=== PATIENT | female | born 1965 | race Caucasian/White ===

== ENCOUNTER 2018-01-10 14:35 | Inpatient (IN) | payer OTHER ==
[~2018-01-10] VITALS: Ht 167.6 cm; Wt 90.3 kg
[2018-01-10 14:44] VITALS: BP 120/82
[2018-01-10] MEDS ORDERED: diphenhydrAMINE 50 MG/ML VIAL IM ONE (14:55)
[2018-01-10] MEDS ORDERED: NACL 0.9% 1,000 ML IV ONE ×2 (14:55→16:55)
[2018-01-10] MEDS ORDERED: HALOPERIDOL IM 5 MG/ML VIAL IM ONE ×2 (14:55→16:35)
--- NOTE | 2018-01-10 15:01 | NUR ---
PT MOVED FROM BED 3 TO BED 7
--- NOTE | 2018-01-10 15:04 | NUR ---
52 YO F PT BIBA FOR C/O COMBATIVE BEHAVIOR AND CONFUSION WHILE [facility]. PER EMS, PT WAS COMBATIVE TOWARDS STAFF, ONCE EMS ARRIVED PT WAS HYPERVERBAL, SAYING UNRELATED THINGS, TANGENTIAL. DENIES SI. PER REPORT, PT CLAIMS THAT SHE IS , BUT [place] [facility] [place], AND WAS NEGATIVE. PT GCS 14, PT SEEMS CONFUSED. SAYING INAPPOPRIATE THINGS AND TOUCHING STAFF MEMBERS IN INAPPOPRIATE WAYS. AWAKE AND REPSPONDS/FOLLOWS COMMANDS. RR EVEN AND UNLABORED. LUNGS CLEAR. ER MD GORDON NOTIFIED. PT NEEDS MET. SAFETY PRECAUTIONS IN PLACE. WILL CONTINUE TO MONITOR.
[2018-01-10 15:33] LABS: BASOPHILS % (AUTO) 0.6 % (0.0-2.0); EOSINOPHILS # (AUTO) 0.1 K/uL (0-0.4); EOSINOPHILS % (AUTO) 1.9 % (0.0-4.0); HEMATOCRIT 36.5 % (36-48); HEMOGLOBIN 11.7 g/dL (12.0-16.0); LYMPHOCYTES # (AUTO) 1.9 K/uL (2.5-16.5); LYMPHOCYTES % (AUTO) 26.3 % (20.5-51.1); MEAN CORPUSCULAR HEMOGLOBIN 27 pg (27-31); MEAN CORPUSCULAR HGB CONC 32 g/dL (33-37); MEAN CORPUSCULAR VOLUME 85.5 fL (80-94); MONOCYTES # (AUTO) 0.7 K/uL (0.8-1.0); MONOCYTES % (AUTO) 9.1 % (1.7-9.3); NEUTROPHILS # (AUTO) 4.5 K/uL (1.8-7.7); NEUTROPHILS % (AUTO) 62.1 % (42.2-75.2); PLATELET COUNT (AUTO) 351 K/uL (140-450); RED BLOOD CELL COUNT(AUTO) 4.27 MIL/uL (4.20-5.40); RED CELL DISTRIBUTION WIDTH 16.4 % (11.6-13.7); WHITE BLOOD COUNT (AUTO) 7.3 K/uL (4.8-10.8)
[2018-01-10 15:40] LABS: ANION GAP 11.5 (8-16); CARBON DIOXIDE 30.7 mmol/L (21-32); CHLORIDE 104 mmol/L (98-107); CREATININE 0.9 mg/dL (0.6-1.3); GFR ARICAN-AMERICAN 84 mL/min (>90); GLUCOSE 100 mg/dL (74-106); POTASSIUM 3.2 mmol/L (3.5-5.1); SODIUM SERUM 143 mmol/L (136-145); UREA NITROGEN, BLOOD 8 mg/dL (7-18)
[2018-01-10 15:48] LABS: ALBUMIN 3.7 g/dL (3.4-5.0); ASPARTATE AMINOTRANSFERASE 13 U/L (15-37); SALICYLATE < 2.8 mg/dL (2.8-20.0); TOTAL BILIRUBIN 0.4 mg/dL (0.0-1.0)
[2018-01-10 15:50] LABS: ACETAMINOPHEN < 0.5 ug/ml (10-30)
--- NOTE | 2018-01-10 15:58 | NUR ---
PT IS AGITATED KEEPS ON YELLING AND REMOVING ALL LEADS;PT PLACED ON RESTRAINTS;
[2018-01-10 16:33] LABS: BARBITURATE, URINE NEG. ng/ml (NEG <=200); BENZODIAZEPINE, URINE NEG. ng/mL (NEG <=200); CANNABINOID, URINE NEG. ng/mL (NEG <=50); COCAINE, URINE NEG. ng/mL (NEG <=300); OPIATE, URINE NEG. ng/mL (NEG <=2000); PHENCYCLIDINE SCREEN,URINE NEG. ng/mL (NEG <=25)
--- NOTE | 2018-01-10 16:34 | NUR ---
PT KEEPS ON YELLING;AGIATATED;KEEPS ON MOVING IN BED.
[2018-01-10] MEDS ORDERED: LORazepam 2 MG/ML VIAL IVP ONE ×2 (16:35→17:15)
[2018-01-10] MEDS ORDERED: POTASSIUM CHLORIDE 10 MEQ TABER PO ONE (16:35)
[2018-01-10] MEDS ORDERED: LORazepam 2 MG/ML VIAL ONE ×2 (16:36→17:18)
[2018-01-10] MEDS ORDERED: LORazepam 2 MG/ML VIAL IVP PRN (16:55)
[2018-01-10] MEDS ORDERED: ACETAMINOPHEN 325 MG TAB PO PRN (16:55)
[2018-01-10] MEDS ORDERED: ONDANSETRON 4 MG/2 ML VIAL IVP PRN (16:55)
[2018-01-10] MEDS ORDERED: MORPHINE SULFATE 2 MG/ML SYR IVP PRN (16:55)
--- NOTE | 2018-01-10 17:00 | NUR ---
CHECKED UPPER EXTREMITIES;SKIN INTACT; GOOD CIRCULATION;WILL CONTINUE TO MONITOR PT.
[2018-01-10] MEDS ORDERED: HYDROcodone/APAP 7.5/325 MG 1 TAB PO PRN (17:05)
--- NOTE | 2018-01-10 17:39 | NUR ---
Patient will be admitted to care of DR REED. Admited to MED SURG. Will go to [id number]. Belongings list completed. Report to HITESH TEJEDA.
--- NOTE | 2018-01-10 17:45 | NUR ---
PATIENT ARRIVED ON FLOOR VIA GURNEY, PATIENT AGITATED AND SCREAMING AND CRYING, YELLING "I WANT TO GO HOME". REPORT RECEIVED FROM OEM SALES MANAGER DORIAN. DX IS AMS. SKIN IS INTACT. PATIENT KEEPS ON TAKING HER GOWN OFF AND TRYING TO GET OUT OF BED. CANNOT TAKE BLOOD PRESSURE BECAUSE PATIENT AGITATED. T 98.4, O2 94% ON ROOM AIR. HR 114, RR 24. IV TO RIGHT AC 22 G, INFUSING IVF WELL. PATIENT RECEIVED 10 MG OF HALDOL IN ER, 2MG OF ATIVAN, AND 50 MG OF BENADRYL. PATIENT STILL AGITATED AND CRYING. MRSA SCREENING DONE. INITIAL ASSESSMENT DONE. SAFETY PRECAUTION IN PLACE, CALL LIGHT WITHIN REACH. BED ON LOWEST SETTING, BED ALARM ON. WILL CONTINUE TO MONITOR PATIENT.
[2018-01-10] MEDS: NACL 0.9% 1,000 ML IV SCH (18:00)
--- NOTE | 2018-01-10 18:00 | NUR ---
PATIENT AGITATED. IV WRAPPED IN KERLIX BUT FROM PATIENT'S AGITATION, IV DISLODGED. IV REMOVED, IV CATHETER INTACT. NO BLOOD NOTED. PATIENT STILL TRYING TO GET HERSELF OUT OF BED AND TAKING OFF HER GOWN. SAFETY PRECAUTION IN PLACE, BED ALARM ON, WILL CONTINUE TO MONITOR PATIENT.
[2018-01-10] MEDS: HALOPERIDOL IM 5 MG/ML VIAL IM PRN (18:18)
--- NOTE | 2018-01-10 18:18 | NUR ---
HALDOL GIVEN PRN FOR PATIENT'S AGITATION. PATIENT STILL SCREAMING AND THRASHING AROUND. WILL CONTINUE TO MONITOR PATIENT.
--- NOTE | 2018-01-10 18:36 | NUR ---
PATIENT SLEEPING COMFORTABLY IN BED, NO SIGN OF DISTRESS OR SOB NOTED ON ROOM AIR. RESPIRATIONS EVEN AND UNLABORED. SAFETY PRECAUTION IN PLACE, BED ALARM ON, WILL CONTINUE TO MONITOR PATIENT.
--- NOTE | 2018-01-10 19:02 | NUR ---
REPORT GIVEN TO MANAGER SHIFT NURSE AT BEDSIDE FOR CONTINUITY OF CARE. PATIENT IN STABLE CONDITION, SLEEPING COMFORTABLY.
--- NOTE | 2018-01-10 19:03 | NUR ---
RECD. RESTING COMFORTABLY SLEEPING IN BED. RESPIRATION EVEN AND UNLABORED. ON SAFETY PRECAUTION, BED ON ALARM. NO IV LINE, JUST GOT PULLED OUT PER AM NURSE REPORT. NO APPEARANCE OF PAIN NOTED 0/1O. NO AGITATION. WILL CONTINUE MONITORING PATIENT.
--- NOTE | 2018-01-10 20:00 | NUR ---
Patient's Plan of Care was discussed and reviewed with NET DEVELOPER PROGRAMMER: AMARILIS HERNANDEZ
--- NOTE | 2018-01-10 20:20 | NUR ---
AWAKE, SHOUTING AND CRYING. WHEN ASKED WHY, KEEP ON MUMBLING WORDS. REORIENTED TO HOSPITAL SETTING. PLAN OF CARE DISCUSSED BUT UNABLE TO COMPREHEND. VERY CONFUSED.
--- NOTE | 2018-01-10 20:30 | NUR ---
BECOMES QUIET AND WENT BACK TO SLEEP.
--- NOTE | 2018-01-10 21:00 | NUR ---
STILL SHOUTS AND CRY OCCASIONALLY, PUTTING BILATERAL LOWER EXTREMITIES OUT OF SIDE RAILS. REPOSITIONED IN BED FOR SAFETY.
--- NOTE | 2018-01-10 21:30 | NUR ---
FOUND STANDING BY THE BED, GAIT UNSTEADY, ASSISTED TO SIT ON CHAIR, MUMBLING WORDS. REORIENTED TO HOSPITAL SETTING, UNABLE TO UNDERSTAND.
--- NOTE | 2018-01-10 22:00 | NUR ---
SITTING ON THE W/C NEAR STATION, SLEEPING.
--- NOTE | 2018-01-10 23:00 | NUR ---
PUT TO BED, WENT TO SLEEP. FIELD CREW CHIEF CAME AND TRIED TO DO HIP X-RAY BUT PATIENT GETS COMBATIVE, SHOUTING. UNABLE TO DO X-RAY.
[2018-01-11] MEDS: HALOPERIDOL IM 5 MG/ML VIAL IM PRN ×3 (00:02→14:22)
--- NOTE | 2018-01-11 00:02 | NUR ---
HALDOL 5MG/1ML GIVEN IM. PT TOLERATED WELL.
--- NOTE | 2018-01-11 01:05 | NUR ---
NO AGITATION NOTED.
--- NOTE | 2018-01-11 02:00 | NUR ---
STILL SHOUT AND WITH ON AND OFF AGITATION. PUT ON W/C NEAR STATION.
[2018-01-11] MEDS: NACL 0.9% 1,000 ML IV SCH ×3 (02:54→22:54)
--- NOTE | 2018-01-11 06:00 | NUR ---
VERY AGITATED, SHOUTING, WON'T LISTENED TO NURSES. BACK TO ROOM, ASSISTED TO LAY IN BED, WENT TO SLEEP.
--- NOTE | 2018-01-11 07:15 | NUR ---
RECEIVED PT FROM REFRIGERATION MANAGER THOMAS NÚÑEZ. PT ASLEEP IN BED, NO SIGNS OF ANXIETY OR DISTRESS. NOTED NO IV ACCESS D/T PT REFUSED. UPDATED BOARD. WILL CONTINUE TO MONITOR.
--- NOTE | 2018-01-11 07:15 | NUR ---
ENDORSED TO AM NURSE FOR CONTINUITY OF CARE.
[2018-01-11 08:00] VITALS: BP 154/84
--- NOTE | 2018-01-11 08:33 | NUR ---
PT AGITATED AND SCREAMING, UNABLE TO COMPREHEND WHAT PT IS SAYING. WILL MEDICATE WITH HALOPERIDOL ACCORDING TO ROXANE BLANCHARD.
[2018-01-11] MEDS: ENOXAPARIN 40 MG/0.4 ML SYR SUBQ SCH (09:00)
--- NOTE | 2018-01-11 09:21 | NUR ---
PT SCREAMED "NO PLEASE I DONT WANT IT!" WHEN EXPLAINED LOVENOX IS DUE. WILL HOLD LOVENOX.
--- NOTE | 2018-01-11 10:20 | NUR ---
PATIENT HAS BEEN SCREENED AND CATEGORIZED MODERATE NUTRITION RISK. PATIENT WILL BE SEEN WITHIN 3-5 DAYS OF ADMISSION. 01/13/18 01/15/[address]
[2018-01-11 10:55] LABS: BASOPHILS % (AUTO) 0.4 % (0.0-2.0); EOSINOPHILS # (AUTO) 0.1 K/uL (0-0.4); EOSINOPHILS % (AUTO) 1.3 % (0.0-4.0); HEMOGLOBIN 10.9 g/dL (12.0-16.0); LYMPHOCYTES # (AUTO) 1.7 K/uL (2.5-16.5); LYMPHOCYTES % (AUTO) 21.7 % (20.5-51.1); MEAN CORPUSCULAR HEMOGLOBIN 27 pg (27-31); MEAN CORPUSCULAR HGB CONC 32 g/dL (33-37); MEAN CORPUSCULAR VOLUME 85.8 fL (80-94); MONOCYTES # (AUTO) 0.5 K/uL (0.8-1.0); MONOCYTES % (AUTO) 6.9 % (1.7-9.3); NEUTROPHILS # (AUTO) 5.4 K/uL (1.8-7.7); NEUTROPHILS % (AUTO) 69.7 % (42.2-75.2); PLATELET COUNT (AUTO) 322 K/uL (140-450); RED BLOOD CELL COUNT(AUTO) 3.97 MIL/uL (4.20-5.40); RED CELL DISTRIBUTION WIDTH 16.7 % (11.6-13.7); WHITE BLOOD COUNT (AUTO) 7.7 K/uL (4.8-10.8)
[2018-01-11 11:16] LABS: ALBUMIN 3.2 g/dL (3.4-5.0); ANION GAP 9.3 (8-16); CARBON DIOXIDE 30.9 mmol/L (21-32); POTASSIUM 3.2 mmol/L (3.5-5.1); TOTAL BILIRUBIN 0.4 mg/dL (0.0-1.0)
--- NOTE | 2018-01-11 11:30 | NUR ---
PT REFUSED IV INSERTION TO ADMINISTER FLUIDS. STATES "I DONT WANT THAT." EDUCATION PROVIDED, WILL CONTINUE TO MONITOR.
--- NOTE | 2018-01-11 13:15 | NUR ---
Clinical review faxed to [facility] at [phone]
--- NOTE | 2018-01-11 13:36 | NUR ---
PT ASLEEP IN BED NO SIGNS OF DISTRESS WILL CONTINUE TO MONITOR, CALL LIGHT WITHIN REACH.
[2018-01-11] MEDS ORDERED: OLAN2.5T1 PO (13:46)
[2018-01-11] MEDS ORDERED: LORA-476 PO (13:47)
[2018-01-11] MEDS ORDERED: POTASSIUM CHLORIDE 10 MEQ TABER PO SCH (14:00)
--- NOTE | 2018-01-11 14:22 | NUR ---
PT AGITATED AND YELLING, UNABLE TO COMPREHEND WHAT PT IS SAYING, WILL MEDICATE WITH HALDOL ACCORDING TO DRS ORDER.
--- NOTE | 2018-01-11 14:37 | NUR ---
Chef Head Notes: I attempted to meet with patient to screen discuss, confirm and gather additional information. Patient was in bed awake and alert. Patient is easily irritated, aggressive, and refused to meet and answer any questions for these freelance writer. I explained my role as a court worker. Patient verbalized understanding however; shouted " I do not want to speak to a social work lecturer" Then Patient turn around and stop talking to these freelance writer. I left the room and will be calling SN[facility] for patient's information.
--- NOTE | 2018-01-11 14:40 | NUR ---
Lead Software Tester Notes: I called Enrique in admissions at [facility]. I provided Enrique patient status and requested additional information about Patient. Per Enrique Patient has been in their facility for short term under 2 months. Patient has no issues with medications and has no special equipment. Per Enrique Patient has a and do not have advance directives at this time. When I asked Enrique if patient was on a bed hold and if she will be returning back to [place] after she discharges from [facility]. Enrique stated " Well Shell is searching for a more appropriate placement with [facility]s sister facility. I asked Enrique that if patient was to be discharge from [facility] soon will their facility be taking her back. Enrique Stated " I'm not sure but; Shell will call you about that patient and I do need you to send me via fax Patient's updated clinical information so we can send information and inquire for a more appropriate placement. I told Enrique to have Shell call me as soon as possible. Enrique agreed and I ended the call. I faxed at to [facility] requested patient's clinical information.
--- NOTE | 2018-01-11 15:00 | NUR ---
hot tamale worker Notes: I called patient's daughter Yumiko Serrano at to provide her with patient's updated status, discuss, confirm and gather patient's additional information. I introduce myself and my role as a medical assistant per diem. Patient's daughter stated that Patient as of 2-4 weeks ago was living at home with her father. Patient was hospitalized and placed at [facility] ([facility] Per patient's daughter she has no advance directive at this time; per Daughter patient Dr. Maria Del Carmen Cooper who last seen patient in the facility about 2 weeks ago. Patient's daughter stated that patient has no issues with medications and has only a wheelchair, as her special equipment. No 02 Per Patient's daughter patient will want to discharge back to the same facility ([facility] Patient stated not having any questions at the timer. hot tamale worker and ed case manager will follow up as needed.
--- NOTE | 2018-01-11 15:31 | NUR ---
CALL FROM JERONIMO NAZARIO TO CLARIFY ORDER TO D/C TO [facility].
[2018-01-11 15:51] VITALS: BP 144/54
--- NOTE | 2018-01-11 16:04 | NUR ---
PTS CALLED STATING HE WILL COME TO [facility] PT TO TAKE HOME.
--- NOTE | 2018-01-11 16:04 | NUR ---
Web Master Notes: Shell from [facility] call me stating that patient is needing a more appropriate placement at this time than their facility can offer and that she has and will be looking for a new placement with Psychiatric services for patient's after her discharge from [facility]. I asked Shell if patient is on a 7 days hold at their facility and if she has made the family aware of patient's possible change of placement. Shell Stated " that patient is on a 7 day bed hold however; she is looking for a more appropriate placement at this time and hoping to have her be placed in a [facility] facility in [facility]. She also stated " That she has not talk to the family about placement change, added that patient has a as her person to notify and no advance directives at this time. Shell stated that she will be reaching out to patient's family () and talk to them about patient's change of placement when she has found one. Shell added that she wants to discuss with family when she has a placement already and that if she is unable to find placement then patient will be returning to their facility at ([facility]). I thanked Shell for her information and call and also I informed her that I already faxed her patient's updated clinical information. She tanked me and I ended the call.
--- NOTE | 2018-01-11 17:58 | NUR ---
PT UP IN BED EATING, NO SIGNS OF DISTRESS, CALL LIGHT WITHIN REACH, WILL CONTINUE TO MONITOR.
--- NOTE | 2018-01-11 18:23 | NUR ---
RECEIVED VERBAL ORDER FROM DR BOTELLO FOR ZYPREXA 5MG AT 2100.
--- NOTE | 2018-01-11 19:26 | NUR ---
ENDORSED PT TO HAND MARKER NURSE. PT STABLE.
--- NOTE | 2018-01-11 19:26 | NUR ---
RECEIVED REPORT FROM DAY SHIFT NURSE AT BEDSIDE. PT IN STABLE CONDITION. NO IV ACCESS, PT HAS REFUSED. PT IS ON RA. SKIN IS INTACT. BED LOCKED, LOW POSITION, WITH SIDE RAILS UP X2. BOARD UPDATED. WILL CONTINUE TO MONITOR PT.
--- NOTE | 2018-01-11 20:26 | NUR ---
PT IS REFUSING TO TAKE HER EVENING MEDICATION. ASSISTED PT UP TO BATHROOM. PT NOW BACK IN BED. WILL CONTINUE TO MONITOR.
[2018-01-11] MEDS ORDERED: OLANZapine 2.5 MG TAB PO SCH ×2 (21:00)
--- NOTE | 2018-01-11 22:26 | NUR ---
PT IS ASLEEP IN BED. NO S/SX OF DISTRESS. WILL CONTINUE TO MONITOR.
[2018-01-12] VITALS: BP 149/59
--- NOTE | 2018-01-12 00:13 | NUR ---
PT REQUESTED TO TALK TO RN, "STATED SHE WILL NOT BE TAKING ANYMORE MEDICATIONS WHILE IN THIS FACILITY."
--- NOTE | 2018-01-12 02:30 | NUR ---
PT ASLEEP IN BED. NO S/SX OF DISTRESS. WILL CONTINUE TO MONITOR.
--- NOTE | 2018-01-12 03:39 | NUR ---
ASSISTED PT UP TO BEDSIDE COMMODE. PT HAD BM. HELPED PT BACK INTO BED. NO S/SX OF DISTRESS. WILL CONTINUE TO MONITOR PT.
--- NOTE | 2018-01-12 05:53 | NUR ---
PT RESTING IN BED. PT C/O PAIN BUT DOES NOT WISH TO TAKE ANY PAIN MEDICATION. WILL CONTINUE TO MONITOR PT.
--- NOTE | 2018-01-12 07:10 | NUR ---
ENDORSED PT TO DAY SHIFT NURSE AT BEDSIDE FOR CONTINUITY OF CARE. PT IN STABLE CONDITION.
--- NOTE | 2018-01-12 07:30 | NUR ---
RECEIVED PT FROM CONTRACTING OFFICER NURSE, PT ASLEEP,UPDATED BOARD, NO SIGNS OF DISTRESS, CALL LIGHT WITHIN REACH, WILL CONTINUE TO MONITOR.
--- NOTE | 2018-01-12 07:52 | NUR ---
CALLED [facility] TO HAVE ALL PTS MEDICATIONS FAXED. PT STATES WILL ONLY TAKE MEDICATIONS FROM [facility]. PT STATES WILL REFUSE ALL OTHER MEDICATIONS.
--- NOTE | 2018-01-12 08:28 | NUR ---
PT C/O PAIN 3/10 IN RIGHT LEG AFTER WORKING WITH PT, WILL MEDICATE WITH TYLENOL ACCORDING TO DRS ORDER.
[2018-01-12 08:29] VITALS: BP 160/74
[2018-01-12] MEDS: NACL 0.9% 1,000 ML IV SCH (08:54)
[2018-01-12] MEDS: ENOXAPARIN 40 MG/0.4 ML SYR SUBQ SCH (09:00)
[2018-01-12] MEDS ORDERED: ZIPR80CA1 PO (09:27)
[2018-01-12] MEDS ORDERED: BUS5 PO (09:27)
[2018-01-12] MEDS ORDERED: DEXT1DRO4 OP (09:27)
[2018-01-12] MEDS ORDERED: TRAM50TA1 PO (09:27)
[2018-01-12] MEDS ORDERED: GABA300C PO (09:27)
[2018-01-12] MEDS ORDERED: LAM200 PO (09:27)
[2018-01-12] MEDS ORDERED: BENZ1TAB42 PO (09:27)
[2018-01-12] MEDS ORDERED: IBUP-1842 PO (09:27)
--- NOTE | 2018-01-12 09:27 | NUR ---
RECEIVED FAX FROM [facility] OF MEDICATION LIST, WILL CALL DR BOTELLO.
--- NOTE | 2018-01-12 09:32 | NUR ---
CALLED DR BOTELLO, ASKED TO BE PAGED BACK.
--- NOTE | 2018-01-12 09:50 | NUR ---
CALL FROM DR BOTELLO TO PUT IN ORDER FOR AT HOME MEDICATIONS. TOLD TO VERIFY WITH PHARMACY IF MEDICATIONS ARE IN STOCK.
[2018-01-12] MEDS ORDERED: DICL-388 PO (10:04)
--- NOTE | 2018-01-12 10:15 | NUR ---
CONSULTED WITH NANCY FROM PHARMACY ABOUT MEDICATIONS [facility] CURRENTLY HAS STOCKED AND FORMS/DOSES MEDICATIONS COME IN. WILL TALK WITH PT IF PT WOULD WANT TO TAKE DOSES WE HAVE. WILL PLACE TORB AFTER.
[2018-01-12] MEDS ORDERED: BENZTROPINE 1 MG TAB PO PRN (11:05)
[2018-01-12] MEDS ORDERED: IBUPROFEN 400 MG TAB PO PRN (11:05)
--- NOTE | 2018-01-12 11:14 | NUR ---
WILL D/C ZYPREXA AND LOVENOX PER MD ORDER.
--- NOTE | 2018-01-12 12:30 | NUR ---
BED BATH PROVIDED, PT RELAXED IN BED, CALL LIGHT WITHIN REACH, WILL CONTINUE TO MONITOR.
[2018-01-12] MEDS: GABAPENTIN 300 MG CAP PO SCH ×2 (13:44→17:53)
--- NOTE | 2018-01-12 15:05 | NUR ---
PT ASKED IF CAN BE TRANSFERRED HOME VIA [facility]. INSTRUCTED TO SEND FACE SHEET PRIOR. WILL ASK DR BOTELLO IF PT IS ABLE TO BE TRANSFERRED THIS METHOD.
--- NOTE | 2018-01-12 15:18 | NUR ---
FAXED CONCURRENT REVIEW TO [facility] [phone] PHONE DUNG [phone]
--- NOTE | 2018-01-12 16:00 | NUR ---
CALLED DAUGHTER SHAWNA TO CLARIFY ADDRESS PT WILL BE TAKEN TO, DAUGHTER STATES ANA WILL BE PRESENT. PHY THERAPIST KAT WILL ARRANGE AID WITH TRANSPORTATION.
[2018-01-12 16:24] VITALS: BP 145/66
[2018-01-12 16:43] VITALS: BP 155/88
--- NOTE | 2018-01-12 16:55 | NUR ---
RECEIVED ORDER FOR PATIENT TO GO HOME WITH PT AND ARRANGE TRANSPORTATION. I CALLED DUNG [facility] AND SHE SAID FOR HOME HEALTH PT USE [facility] PHONE [phone]. FOR TRANSPORTATION, FILL OUT THE [facility] TRANSPORT FORM AND FAX TO [phone], WHICH I DID. PHONE FOR TRANSPORT, . I CALLED [facility] AND SPOKE WITH JOI. HE HAS ACCEPTED THE PATIENT FAXED ORDER , H&P AND PT NOTES TO HIM AT [phone] PHONE FOR [facility] [phone]. FAXED ORDER AND PT NOTES TO [facility] [phone]. DUNG FROM [facility] AWARE. SPOKE WITH [facility] TRANSPORT AND SPOKE WITH RUTH. SHE WILL USE [employer] [facility] AND PICKUP IS 6:30P.M. JARRET PROCTOR AWARE.
--- NOTE | 2018-01-12 19:00 | NUR ---
LEFT LEFT HOME VIA TRANSPORTATION SERVICE, PT STABLE. CALLED DAUGHTER FOR D/C FOLLOW UP.
[2018-01-12] MEDS ORDERED: busPIRone 5 MG TAB PO SCH (21:00)
[2018-01-12] MEDS ORDERED: ZIPRASIDONE 40 MG CAP PO SCH (21:00)
[2018-01-13] MEDS ORDERED: ASCORBIC ACID 500 MG TAB PO SCH (09:00)
== END 2018-01-12 18:30 | disposition home or self-care (01) | DRG 884 ==
LOC: MED 14:35 → MTU 16:54 → OBSVTOIN 17:09 → MTU 21:45
PROVIDERS: ADMIT Hospitalist; ATTEND Hospitalist
DX: R45.1 Restlessness and agitation (principal); F20.9 Schizophrenia, unspecified; F31.32 Bipolar disorder, current episode depressed, moderate; F41.1 Generalized anxiety disorder; M19.90 Unspecified osteoarthritis, unspecified site; F39 Unspecified mood [affective] disorder
CPT/HCPCS: 96361; 96372; 96374; 99285; G0378; 36415; 73502; 80053; 80305; 85025; 87081; 93005; 97110; 97116; 97140; 97530; C1758; G0480; G0482; J1200; J1630; J2060; Q0092